=== PATIENT | female | born 2000 | race Caucasian/White ===

== ENCOUNTER 2023-01-06 14:20 | Inpatient (IN) | payer MEDICAID, SELFPAY ==
[2023-01-06] VITALS (77 sets, daily range): BP systolic 94–147; BP diastolic 53–81; PULSE 60–146; RESP 16; TEMP 36.4; O2SAT 84–100; BMI 34.3
[2023-01-06 14:52] LABS: HCT 36.2 % (36.0-46.0); HGB 12.2 g/dL (11.2-15.7); MCH 28.2 pg (27.0-33.0); MCHC 33.7 % (32.0-36.0); MCV 84 fL (80-95); MPV 10.9 fL (8.0-11.0); Platelet Count 192 10^3/uL (130-400); RBC 4.33 10^6/uL (3.93-5.22); RDW 13.3 % (11.7-14.6); RDW-SD 40.8 fL
[2023-01-06] MEDS: Penicillin G POT. 5,000,000 UNITS in Normal Saline 100 ML 200 UNITS IVPB (15:00)
--- NOTE | 2023-01-06 15:08 | HPE_ITS ---
Date of service: 01/06/23 Time of Service: 15:08 Assessment and Plan Assessment and plan (1) Term : Status: Acute Assessment and plan: Term , active labor. Will receive penicillin for group B strep. Patient desires epidural will be placed. Anticipate vaginal delivery. Will have artificial rupture of membranes after second dose of antibiotic if necessary. (2) Normal labor: Status: Acute (3) Group B streptococcal infection during : Status: Acute OB-HPI Labor/Delivery History of Present Illness Reason for Visit: LABOR Chief Complaint: Uterine Contractions. Comments: Patient is a 22-year-old female patient of [facility]. She was seen by them today with onset of contractions that started approximately 7 AM. Evaluation in the office showed contractions every approximately 3 to 5 minutes with a category 1 strip and cervix that was 2 to 3 cm. She presented to the center for further evaluation. She is having strong, regular, painful contractions approximately every 3 minutes and repeat cervical check was noted to be 5 cm, 80%, -1 station with a bulging bag of water consistent with active labor. She is known to be a group B strep carrier. Her laboratory studies and care will be reviewed once her records are received from her primary care providers. Per the patient, she has had no issues with blood pressure, or diabetes throughout her . The remainder of her course has been on complex. Review of Systems Narrative: Alert oriented, patient is having painful regular contractions. She has been having episodes of vomiting throughout the course of the day today. She has no other signs or symptoms of preeclampsia. Eyes Eyes: Reports system reviewed and no additional complaints, except as documented ENT Ears, Nose, Mouth, and Throat: Reports system reviewed and no additional complaints, except as documented Cardiovascular Cardiovascular: Reports system reviewed and no additional complaints, except as documented Gastrointestinal Gastrointestinal: Reports as per HPI, Reports cramping and Reports vomiting Genitourinary Genitourinary: Reports as per HPI Musculoskeletal Musculoskeletal: Reports system reviewed and no additional complaints, except as documented Integumentary/Breasts Skin/Breast: Reports system reviewed and no additional complaints, except as documented PFSH All Active Problems (Updated 01/06/23 @ 15:14 by Abigail Cabrera DO) Group B streptococcal infection during (Acute) Normal labor (Acute) Term (Acute) Social History Smoking/Tobacco Use Status: Never Smoking risk assessment performed?: Yes Alcohol Intake: never Drug use: Occasionally Substance use type: marijuana Details: Occasional vape History History 1 Para Hx # Term Pregnancies Multiple births Hx # Pregnancies Ectopic pregnancies AB induced Hx Number of Living Children AB spontaneous Meds Allergies and Home Medications Home Medications Medication Instructions Recorded Confirmed Type egimawer-[id number]-Ev-[id number] 1 mg 1 tab PO DAILY 01/06/23 01/06/23 History tablet Exam Physical Exam Vital Signs Reviewed: Yes Constitutional Constitutional: mild distress Comments: Pain with contractions Detailed Labor and Delivery Exam Dilation: 5 Effacement (%): 90 station: -2 Cervix position: anterior Palma Score: Cervical Points Exam 0 1 2 3 Dilation Closed 1-2cm 3-4 cm 5-6cm Effacement 0-30% 40-50% 60-70% 80% Consistency Firm Medium Soft Station -3 -2 -1,0 +1,+2 Position Posterior Mid Anterior Amniotic Membrane Status: Intact Contraction Frequency(min): 3 Contraction Intensity: Strong Fetus A Heart Rate Baseline: 140 Monitor Accelerations: Present Monitor Decelerations: None Variability: Moderate (6-25 BPM) Categories: Category I Est. Weight: 8 lb HEENT Exam HEENT Exam: Normal Neck Exam Neck Exam: Normal Respiratory Exam Respiratory Exam: Normal Exam Exam: Normal Extremities Exam Extremities Exam: Normal Neurological Exam Neurological Exam: Normal Results Results Group Beta Strep: Positive Abnormal Lab Findings: Abnormal Labs 01/06/23 14:40 WBC 18.00 H Risk Assessment Risk for Shoulder Dystocia Increased Risk?: No Delivery Plan @ 40 wks: Risk for Post- Hemorrhage At Risk?: No Counseled re: Active Management: Yes Date/Initials: JASON 01/06/2023 Risks Reviewed Risks Reviewed Upon Admission: Yes
--- NOTE | 2023-01-06 15:14 | W.ANESPRE ---
General Info Date of Service Date Performed: 01/06/23 Height: 5 ft 8 in Weight: 102.512 kg Body Mass Index (BMI): 34.3 Meds Allergies and Home Medications Allergies Allergy/AdvReac Type Severity Reaction Status Date / Time honey Allergy Verified 01/06/23 15:15 Sulfa (Sulfonamide Allergy Verified 01/06/23 15:15 Antibiotics) sulfamethoxazole Allergy Verified 01/06/23 15:15 [From Bactrim] trimethoprim [From Bactrim] Allergy Verified 01/06/23 15:15 Home Medication Medication Instructions Recorded exiayjxs-tzh-Hq-FA 1 mg 1 tab PO DAILY 01/06/23 tablet Current Visit Medications: Current Medications Generic Name Dose Route Start Last Admin Trade Name Freq PRN Reason Stop Dose Admin Bupivacaine HCl 0 ml 01/06/23 15:05 Bupivacaine 0.25% Pres-Free 10 Ml Vial EP 01/06/23 15:06 NOW ONE Fentanyl 0 mcg 01/06/23 15:05 Fentanyl 100 Mcg/2 Ml Vial EP 01/06/23 15:06 NOW ONE Fentanyl/Ropivacaine 200 ml 01/06/23 15:15 Fentanyl/Ropivacaine 2 Mcg/Ml And 0.1% 200 Ml Cadd Cassette EP DIRECTED MAE Penicillin G Potassium 3,000, 50 mls @ 100 mls/hr 01/06/23 14:30 000 units/ Sodium Chloride IVPB Q4H MAE Sodium Chloride 500 mls @ 0 mls/hr 01/06/23 14:28 Saline 500ml Bag IV PRN PRN As Directed Ringer's Solution 500 mls @ 500 mls/hr 01/06/23 15:05 IV 01/06/23 16:04 BOLUS ONE IV Miscellaneous Supplies 1 each 01/06/23 14:30 Iv Access IV DIRECTED MAE Sodium Chloride 0 ml 01/06/23 14:28 Normal Saline Flush 10 Ml Syr IVP PRN PRN PFSH Active Problems Active Problems: Problem Status Onset Code Group B streptococcal infection during O98.819, B95.1 Normal labor O80, Z37.9 Term Z34.90 Tobacco Smoking/Tobacco Use Status: Never Alcohol Alcohol Intake: never Substance Use Substance use: Occasionally Substance use type: marijuana Details: Occasional vape Prental History History 1 Para Hx # Term Pregnancies Multiple births Hx # Pregnancies Ectopic pregnancies AB induced Hx Number of Living Children AB spontaneous Vital Signs and Lab Results Lab Results 01/06/23 14:40 Blood Type / Crossmatch: Patient ABO/Rh A Positive 01/06/23 Antibody Screen NEGATIVE 01/06/23 Complete Blood Count: White Blood Count 18.00 10^3/uL (4.4-10.8) H 01/06/23 14:40 Red Blood Count 4.33 10^6/uL (3.93-5.22) 01/06/23 14:40 Hemoglobin 12.2 g/dL (11.2-15.7) 01/06/23 14:40 Hematocrit 36.2 % (36.0-46.0) 01/06/23 14:40 Platelet Count 192 10^3/uL (130-400) 01/06/23 14:40 Complete Metabolic Panel: No Data to Display Liver Function Panel: No Data to Display Coagulation Panel: No Data to Display Cardiac Panel: No Data to Display Arterial Blood Gas: No Data to Display Venous Blood Gas: No Data to Display Pancreas Panel: No Data to Display Thyroid Panel: No Data to Display Infectious Disease: No Data to Display Blood Cultures: No Data to Display Toxicology Panel: No Data to Display Panel: No Data to Display Anesthesia Assessment and Plan Anesthesia History Personal History: No History of Anesthesia Complications Family History: No Family History of Anesthesia Complications Exercise Tolerance Exercise Tolerance: Metabolic Equivalents>4 Cardiac & Pulmonary Exam Cardiac Exam: Normal S1/S2 Heart Sounds Pulmonary Exam: Clear Bilateral Breath Sounds Implantable Cardiac Device Does patient have a Pacemaker or an ICD?: No Airway Exam Known Difficult Airway: No Mallampati Class: 2 Mouth Opening: Normal (> 3cm) Thyromental Distance: Greater than 3 cm Neck Range of Motion: Full ROM Neck Circumference: Normal Teeth Condition: Normal Dentition ASA Classification ASA Score: ASA 2 Emergency Case?: No NPO Status NPO Status: Full Stomach Status Status: Confirmed Anesthesia Plan Resuscitation Status: Full Code Anesthesia Technique: Epidural Anesthesia Airway Planned: Natural Airway Monitors Used: Standard Monitors
--- NOTE | 2023-01-06 16:00 | ANES.NEUR_ITS ---
Epidural/Spinal Catheter Date Performed: 01/06/23 Procedure Start: 15:25 Procedure Stop: 15:55 Requesting Provider: Abigail Cabrera Procedure Location: Obstetrics Reason Performed: Labor Epidural Standard Monitors Applied: ECG, Blood Pressure, SpO2 and See EMR for corresponding vital signs Patient Position: Sitting Sedation Given (Indicate Dose Given): No Sedation given Patient Mental Status: Awake Sterility: Hand Hygiene, Surgical Cap, Surgical Mask, Sterile Gloves, Sterile Drape/Sheet and Chlorhexidine Procedure Location: L2-L3 Interspace Epidural Needle: Tuohy 18 Gauge Needle Length: 3.5 Inch Needle Approach: Midline Epidural Procedure: Skin Prepped, Sterile Drape Placed, 1% Lidocaine to skin and subcutaneous tissue with 25G needle, Tuohy Needle placed, RYAN to Saline Used, Epidural Catheter Placed, Negative Heme, Negative CSF Flow and Tuohy Needle Removed Catheter Placed?: Catheter Placed Test Dose (Indicate Dose Given): 3ml 1.5% Lidocaine with 1:200K Epinephrine Given and Negative Test Dose Loss of Resistance Depth (cm): 9 Catheter depth at skin (cm): 15 Dressing: Sorbaview Dressing Placed, Mastisol Used and Dressing reinforced with Tape Epidural Pr ovider Bolus (Indicate Dose Given): Total bolus dose given in 3-5 ml divided doses and Total Ropivacaine 0.1% with Fentanyl 2mcg/ml Given from pump. (ml) Dose:: 10ml, 2 divided doses Additives (Indicate Dose Given ): None Infusion Medication: Medication Infusion Began Medication Infusion: Ropivacaine 0.1% with Fentanyl 2mcg/ml Maintenance Infusion Rate (ml/hour): 10 PCEA Bolus Dose (ml): 5 Block Level: T10 Paresthesia: None Ultrasound: Not Used Number of Attempts (See previous attempts in note section): 1 Procedure Tolerated: No Complications and Patient tolerated well Procedure Outcome: Successful Performed By: Milana Raza Other (not listed above): note: procedure performed by SRNA. Jonah Supervised by SYLVIA.
[2023-01-06] MEDS: Ondansetron 4 MG/2 ML VIAL IVP (16:55)
--- NOTE | 2023-01-06 17:59 | W.PM.OBNL1 ---
Date of service: 01/06/23 Time of Service: 17:59 Objective Abnormal lab results 01/06/23 Range/Units 14:40 WBC 18.00 H (4.4-10.8) 10^3/uL Pulse BP Pulse Ox 97 H 137/81 100 01/06/23 17:58 01/06/23 17:41 01/06/23 17:12 Laboratory Results WBC 18.00 10^3/uL (4.4-10.8) H 01/06/23 14:40 RBC 4.33 10^6/uL (3.93-5.22) 01/06/23 14:40 Hgb 12.2 g/dL (11.2-15.7) 01/06/23 14:40 Hct 36.2 % (36.0-46.0) 01/06/23 14:40 MCV 84 fL (80-95) 01/06/23 14:40 MCH 28.2 pg (27.0-33.0) 01/06/23 14:40 MCHC 33.7 % (32.0-36.0) 01/06/23 14:40 RDW 13.3 % (11.7-14.6) 01/06/23 14:40 Plt Count 192 10^3/uL (130-400) 01/06/23 14:40 MPV 10.9 fL (8.0-11.0) 01/06/23 14:40 Patient ABO/Rh A Positive 01/06/23 14:40 Antibody Screen NEGATIVE 01/06/23 14:40 Subjective Interval history since last seen: Patient seen and examined. Feeling pressure and discomfort with contractions. Cervical exam most recently 9 cm, 90%, significant bulging bag of water. Intact. Will have second dose of Tessalon for group B strep. Would anticipate vaginal delivery future. records Sona Paniagua reviewed. She did receive a Tdap 01/02/2023 her blood type is B+ group B strep is positive rubella is immune she had adequate care throughout the course of her with her last visit being 01/02/2023. She does vape and use marijuana for her anxiety. I would anticipate vaginal delivery. Future. Results Hemoglobin/Hematocrit: Hgb 12.2 g/dL (11.2-15.7) 01/06/23 14:40 Hct 36.2 % (36.0-46.0) 01/06/23 14:40 Abnormal Lab Findings: Abnormal Labs 01/06/23 14:40 WBC 18.00 H
[2023-01-06] MEDS: Penicillin G POT. 3,000,000 UNITS in Normal Saline 50 ML 100 UNITS IVPB (18:04)
--- NOTE | 2023-01-06 18:45 | W.PM.OBNL1 ---
Date of service: 01/06/23 Time of Service: 18:45 Pelvic Exam Dilation: 9.5 Effacement (%): 100 station: 0 Comments: Artificial rupture of membranes Objective Abnormal lab results 01/06/23 Range/Units 14:40 WBC 18.00 H (4.4-10.8) 10^3/uL Pulse BP Pulse Ox 92 H 125/76 100 01/06/23 18:42 01/06/23 18:42 01/06/23 17:12 Laboratory Results WBC 18.00 10^3/uL (4.4-10.8) H 01/06/23 14:40 RBC 4.33 10^6/uL (3.93-5.22) 01/06/23 14:40 Hgb 12.2 g/dL (11.2-15.7) 01/06/23 14:40 Hct 36.2 % (36.0-46.0) 01/06/23 14:40 MCV 84 fL (80-95) 01/06/23 14:40 MCH 28.2 pg (27.0-33.0) 01/06/23 14:40 MCHC 33.7 % (32.0-36.0) 01/06/23 14:40 RDW 13.3 % (11.7-14.6) 01/06/23 14:40 Plt Count 192 10^3/uL (130-400) 01/06/23 14:40 MPV 10.9 fL (8.0-11.0) 01/06/23 14:40 Patient ABO/Rh A Positive 01/06/23 14:40 Antibody Screen NEGATIVE 01/06/23 14:40 Subjective Interval history since last seen: Patient seen and examined. Contractions are becoming more intense second dose of penicillin has infused. Cervical examination performed. Anterior lip with water. Artificial rupture of membranes for light. Patient is libby every 3 limits with category 2 strip overall reassuring. Anticipate vaginal delivery Results Hemoglobin/Hematocrit: Hgb 12.2 g/dL (11.2-15.7) 01/06/23 14:40 Hct 36.2 % (36.0-46.0) 01/06/23 14:40 Abnormal Lab Findings: Abnormal Labs 01/06/23 14:40 WBC 18.00 H
[2023-01-06] MEDS: Oxytocin/Normal Saline 30 UNIT/500 ML BAG 95 UNITS IV (20:00)
[2023-01-06] MEDS: Lidocaine 1% Multi-Dose 20 ML VIAL IJ (20:04)
--- NOTE | 2023-01-06 21:22 | OBVDS_ITS ---
Date of service: 01/06/23 Time of Service: 21:23 OB Labor/ Delivery Information Baby A Delivery Delivery Method: Spontaneaous Presentation: Cephalic Cephalic Position: Vertex Vertex Position: Left Occipital Anterior Cord Description-Baby A: 3 Vessels and Clamped/Cut Amniotic Fluid: Meconium Estimated Blood Loss: 500 Delivery Outcome: Liveborn Complications: none Note: Patient is a 22-year-old primigravida who was admitted to the center at 38 weeks and 1 day. She had been seen for evaluation with her primary care provider. On presentation to the hospital, she was noted to be libby every 3 minutes and 5 cm dilated with a bulging bag of water. In light of this, she was admitted to the center. Baseline laboratory studies were performed. She received penicillin G x2 doses. At that point she was noted to be 9 cm after an epidural placed. She had artificial rupture of membranes for light meconium stained fluid. She went on to be completely dilated, and was noted to have deep decelerations. In light of this, professor of latin american studies was notified and present for delivery. With good maternal effort, she pushed the vertex over the perineum. There was no evidence of nuchal cord and shoulders followed with ease. Three-vessel cord was noted, clamped x2, and cut and the baby was handed off to the waiting professor of lat[place] american studies due to the deep decelerations for evaluation. Female -[place]. Apgars 9 and 9 Placenta delivered spontaneously and was noted to be intact. On inspection there was a second-degree posterior vaginal laceration with extension to the bilateral labia minora. This was repaired with 3-0 Vicryl suture in the usual fashion and found to be hemostatic. There was no evidence of further vaginal or cervical lacerations noted. Placenta was inspected and found to be intact. Both cord blood gases and cord blood samples were obtained. Mom and baby were in stable condition with good bonding post delivery. Providers Doctor: Abigail Cabrera Charging Machine Operator: Milana Raza Lead Cytogenetic Technologist: Maria L Ortiz Nurse: Cecy Genao Nurse: Mary Harper Other: Student RUG REPAIRER Labor/Delivery Information Number of Babies in Womb: 1 Steroids Given: None Reason Steroids Not Administered: N/A Group Beta Strep: Positive Antibiotics Administered: Yes Number of Doses of Antibiotics: 2 Shoulder Dystocia: No Stages of Labor Onset of Labor Date: 01/06/23 Onset of Labor Time: 07:00 Complete Dilatation Date: 01/06/23 Complete Dilatation Time: 19:15 Labor - Stage 1 Duration: 12 hours and 15 minutes ROM Baby A: 01/06/23 ROM Baby A: 18:39 ROM Total Time- Baby A: [id number] Delivery Date-Baby A: 01/06/23 Infant Delivery Time-Baby A: 19:58 Labor Stage 2 Duration: 43 minutes Placenta Delivery Date-Baby A: 01/06/23 Placenta Delivery Time-Baby A: 20:02 Labor-Stage 3 Duration: 4 minutes Total Length of Labor-Baby A: 12 hours and 58 minutes Placenta Cultured: No Placenta Status: Delivered Baby A Gender: Female Gestational Status: Early Term (37-38.6 wks) Gestational Age in Weeks/Days: 38 Weeks and 1 Days Score-1 Minute Interval(Baby A) Heart Rate-1 minute: 100 BPM or Greater Respiratory Effort- 1 minute: Spontaneous/Strong Cry Muscle Tone-1 minute: Active Movement Reflex Response-1 minute: Prompt Response Color-1 minute: Bluish Hands or Feet Total Score-1 minute: 9 Score-5 Minute Interval(Baby A) Heart Rate- 5 minute: 100 BPM or Greater Respiratory Effort-5 minute: Spontaneous/Strong Cry Muscle Tone-5 minute: Active Movement Reflex Response-5 minute: Prompt Response
--- NOTE | 2023-01-06 21:45 | W.ANESPOSTOP ---
Postoperative Evaluation Date, Time and Location Date Performed: 01/06/23 Time Performed: 21:45 Patient Location: Obstetrics Vital Signs Most Recent Imported Vital Signs: Most Recent Vital Signs Pulse BP Pulse Ox 99 H 105/59 L 100 01/06/23 21:22 01/06/23 21:22 01/06/23 17:12 Pain Score Most Recent Pain Score: Most Recent Pain Score Pain Level 7 01/06/23 13:47 Assessment Mental Status: Awake (Alert & Oriented to Patient Baseline) Airway and Respiratory Function: Patent airway with normal (patient baseline) respiratory exam Cardiovascular Function: Hemodynamically Stable Hydration Status: Adequately Hydrated Nausea & Vomiting: No Nausea or Vomiting Pain: Pt. Denies Any Pain Peripheral Nerve Block: Patient did not receive a nerve block
[2023-01-06] MEDS: Dibucaine 1% 28 GM TUBE TP (22:15)
[2023-01-06] MEDS: Hamamelis Leaf/Glycerin 100 EACH BOX PR (22:15)
[2023-01-07 01:09] VITALS: BP 107/66; PULSE 85
[2023-01-07 07:00] LABS: HCT 33.5 % (36.0-46.0); HGB 11.2 g/dL (11.2-15.7); MCH 28.6 pg (27.0-33.0); MCHC 33.4 % (32.0-36.0); MCV 86 fL (80-95); MPV 11.2 fL (8.0-11.0); Platelet Count 216 10^3/uL (130-400); RBC 3.92 10^6/uL (3.93-5.22); RDW 13.6 % (11.7-14.6); RDW-SD 42.1 fL; WBC 20.81 10^3/uL (4.4-10.8)
--- NOTE | 2023-01-07 07:45 | OBPPV_ITS ---
Date of service: 01/07/23 Time of Service: 07:45 Assessment and Plan Assessment and plan (1) Normal spontaneous vaginal delivery: Status: Acute Assessment and plan: Patient is day #1 status postnormal spontaneous vaginal delivery at 38 weeks of a viable female infant named Rito. She is doing well. Working on breast-feeding. Strong bonding has been observed. Mom was group B strep p ositive, she was treated appropriately with penicillin G x2 doses prior to delivery. Care will be returned to family practice this morning. Anticipate discharge home 01/08/2023 Subjective Subjective Interval history: Patient seen and examined this morning. Doing well. No issues or concerns. She has been voiding without difficulty. She is working on breast-feeding. She is bonding well with her daughter. Patient's Mood: Good Treichlers feeding status: Exclusively breast feeding Exam Physical Exam Vital signs: Temp Pulse Resp BP Pulse Ox 97.5 F L 85 16 107/66 98 01/06/23 23:34 01/07/23 01:09 01/06/23 23:34 01/07/23 01:09 01/06/23 23:34 Vital Signs Reviewed: Yes Constitutional Constitutional: no acute distress HEENT Exam HEENT Exam: Normal Neck Exam Neck Exam: Normal Respiratory Exam Respiratory Exam: Normal Cardiovascular Exam Cardiovascular Exam: Normal Abdominal Exam Comments: Soft Fundal Exam Fundus: Below Umbilicus and Firm Psychiatric Exam Psychiatric Exam: Normal Results Hemoglobin/Hematocrit: Hgb 11.2 g/dL (11.2-15.7) 01/07/23 06:30 Hct 33.5 % (36.0-46.0) L 01/07/23 06:30 Abnormal Lab Findings: Abnormal Labs 01/06/23 01/07/23 14:40 06:30 WBC 18.00 H 20.81 H RBC 3.92 L Hct 33.5 L MPV 11.2 H
[2023-01-07 08:30] VITALS: BP 100/50; PULSE 77; RESP 16; TEMP 36.6; O2SAT 100
[2023-01-07] MEDS: Docusate Sodium 100 MG CAP PO ×2 (08:46→20:06)
[2023-01-07] MEDS: Ibuprofen 600 MG TAB PO (10:22)
[2023-01-07 16:45] VITALS: BP 109/55; PULSE 70; RESP 21; TEMP 36.9
[2023-01-07 20:54] VITALS: BP 111/57; PULSE 71; RESP 18; TEMP 36.7; O2SAT 100
[2023-01-07 23:13] VITALS: BP 106/55; PULSE 68; TEMP 37.3
[2023-01-08 07:45] VITALS: BP 115/61; PULSE 80; RESP 14; TEMP 36.9
--- NOTE | 2023-01-08 11:57 | DSE_ITS ---
Date of service: 01/08/23 Time of Service: 11:57 DS: Diagnosis Discharge Diagnosis (1) Normal spontaneous vaginal delivery: Status: Acute Asessment and Plan: 22yo [id number] sp w Rh+ RI GBS+ sp uncomplicated , labor and delivery complicated by bradicardia and light meconium. No resuc required. Adequate GBS prophylaxis. 2nd degree laceration repaired. She is doing well post , passing kirsten, voiding well, lochia normal, pain well controlled. Nursing is going well, still working on proper latch and sustaining nursing beyond 10 minutes. Pumping and feeding as well. Will DC home today, follow up for baby in clinic on Monday for weight check. Discharge Plan Disposition Patient Disposition: Home Condition: Good Discharge Details Reason For Visit: LABOR Admit Date/Time: 01/06/23 14:20 Admit Provider: Abigail Cabrera Attending Provider: Abigail Cabrera Primary Care Provider: Rakesh Zuñiga Home Meds and New Rx's Prescriptions: No Action 1 mg Tablet 1 tab PO DAILY Discharge Instructions Stand Alone Forms: BC Post Vaginal Deliver Activity:: Activity as Tolerated Equipment/Supplies:: No Equipment Needed Diet:: As Tolerated Discharge Orders Discharge Orders: Discharge Order (Routine); Ordered 01/08/23 Ordered By: Rakesh Zuñiga OB:DS Summary Summary Vaginal Delivery Method: Spontaneaous Episiotomy Description: None Laceration Description: Other Laceration Extension: Second Degree Time spent discussing smoking cessation with patient: 3 to 10 minutes Contraception Discussed Contraception Discussed: Yes Contraceptive Plan: Control Pill/Patch, Schwertner Infant Gender-Baby A: Female weight: 3360 g Disposition of Baby A: Home Status at Discharge Functional status at discharge: independent ambulation Overall status at discharge: patient is progressing back to baseline Mental Status: mental status grossly normal Speech and Movement: speech and movement normal Mood: congruent mood Affect: normal affect Time Spent with Patient providing and/or coordinating discharge services: Less than 30 minutes Hospital Course [place] presented in active labor, progressed well without intervention. Some bradycardia late in labor to the 70s, and there was light meconium, so peds was present at delivery. She pushed very effectively for 20 min and delivered a viable female infant. No resuscitation was necessary. Apgars of 9 and 9. Normal post course. Exam Physical Exam Vital signs: Temp Pulse Resp BP Pulse Ox 36.9 C 80 14 115/61 100 01/08/23 07:45 01/08/23 07:45 01/08/23 07:45 01/08/23 07:45 01/07/23 20:54 Vital Signs Reviewed: Yes Constitutional Constitutional: no acute distress HEENT Exam HEENT Exam: Normal Neck Exam Neck Exam: Normal Respiratory Exam Respiratory Exam: Normal Cardiovascular Exam Cardiovascular Exam: Normal Fundal Exam Fundus: Below Umbilicus and Firm Extremities Exam Extremity Exam: Normal Skin Exam Skin Exam: Normal Neurological Exam Neurological Exam: Normal Psychiatric Exam Psychiatric Exam: Normal PFSH All Active Problems (Updated 01/07/23 @ 07:47 by Abigail Cabrera DO) Normal spontaneous vaginal delivery (Acute) Group B streptococcal infection during (Acute) Normal labor (Acute) Term (Acute) Social History Smoking/Tobacco Use Status: Never Smoking risk assessment performed?: Yes Alcohol Intake: never Drug use: Occasionally Substance use type: marijuana Details: Occasional vape History History 1 Para Hx # Term Pregnancies Multiple births Hx # Pregnancies Ectopic pregnancies AB induced Hx Number of Living Children AB spontaneous DS: Data Vitals/I&O Vitals and I&O: Vital Signs Temperature 36.9 C 01/08/23 07:45 Temperature Source Oral 01/08/23 07:45 Pulse 80 01/08/23 07:45 Pulse Rhythm Regular 01/08/23 07:45 Respiratory Rate 14 01/08/23 07:45 Respiratory Depth Normal 01/07/23 20:54 Blood Pressure 115/61 01/08/23 07:45 Blood Pressure Mean 79 01/08/23 07:45 Pulse Oximetry 100 01/07/23 20:54 Oxygen Delivery Method Room Air 01/06/23 13:47 Oxygen Flow Rate 0 01/06/23 13:47 Pain Level 0 01/08/23 07:45 Intake & Output 01/07/23 01/07/23 01/08/23 11:59 23:59 11:59 Output Total 500 / 500 Balance -500 / -500 Output: Urine 500 / 500 Other: Urine Color Pale
[2023-01-08] MEDS: Dibucaine 1% 28 GM TUBE TP (12:40)
[2023-01-08] MEDS: Ibuprofen 600 MG TAB PO (13:37)
== END 2023-01-08 15:00 | disposition home or self-care (01) | DRG 807 ==
PROVIDERS: Admitting Provider Obstetrics & Gynecology; PCP Family Medicine; Visit Provider Obstetrics & Gynecology
DX: O99.824 Streptococcus B carrier state complicating childbirth (principal); Z37.0 Single live birth; O99.324 Drug use complicating childbirth; Z3A.38 38 weeks gestation of pregnancy; O70.1 Second degree perineal laceration during delivery; O77.0 Labor and delivery complicated by meconium in amniotic fluid; O76 Abnormality in fetal heart rate and rhythm complicating labor and delivery; F12.90 Cannabis use, unspecified, uncomplicated
CPT/HCPCS: 36415; 85027; 86850; 86900; 86901; J2405; J2540; J3490